=== PATIENT | female | born 2000 | race Caucasian/White ===

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

== ENCOUNTER → 2020-01-08 | Outpatient (CLI) | payer OTHER ==
--- OUTSIDE RECORDS SUMMARY | 2020-01-08 16:59 | XMS REPORT ---
:2000 [facility] [address] [place] [address] Care Team Providers Name Role Phone Ramya Attending Clinician Unavailable Allergies, Adverse Reactions, Alerts This patient has no known allergies or adverse reactions. Medications This patient has no known medications. Problems This patient has no known problems. Procedures Procedure Date / Time Performed Performing Clinician Minh e OFFICE/OUTPATIENT VISIT EST 2018-11-30 08:20:00 Results This patient has no known results. Assessments Condition Name Status Diagnosis Date Treating Clinici an Generalized anxiety disorder Active Major depressive disorder, recurrent, Active moderate Attention-deficit hyperactivity disorder, Active unspecified type Obsessive-compulsive disorder, unspecified Active Encounters Start End Encounter Admission Attending Care Care Encounter Date/Time Date/Time Type Type Clinicians Facility Department ID 2018-11-30 2018-11-[address] [id number]:00 08:20:00 [phone] [id number] [id number] Social History This patient has no known social history. Vital Signs This patient has no known vital signs.
--- NOTE | 2020-01-08 18:30 | RADIOLOGY REPORT (SQ) ---
EXAM DESCRIPTION: U/S NON-OB PELVIS TV W/O DOP IMAGES COMPLETED DATE/TIME: 01/08/2020 4:03 pm REASON FOR STUDY: (T83.32XA)DISPLACEMENT OF INTRAUTERINE CONTRACEPTIVE DEVICE, INIT R10.2 PELVIC AN D PERINEAL PAIN T83.32XA DISPLACEMENT OF INTRAUTERINE CONTRACEPTIVE DEVICE,. IUD strings are lost. COMPARISON: None. TECHNIQUE: Dynamic and static grayscale images acquired of the pelvis via transvaginal approach and recorded on PACS. Additional selected color Doppler and spectral images recorded. LIMITATIONS: None. FINDINGS: UTERUS: The uterus has normal size and contour. No myometrial mass. ENDOMETRIAL STRIPE: The endometrium measures up to 4 mm thickness. An intrauterine device is located normally within the endometrial canal. CERVIX: Normal length and contour. No free fluid or debris within the endocervical canal. No nabot hian cysts. RIGHT OVARY AND DOPPLER: Normal size. No worrisome masses. Normal arterial vascular flow without evid ence for torsion. LEFT OVARY AND DOPPLER: Normal size. No worrisome masses. Normal arterial vascular flow without evide nce for torsion. FREE FLUID: None noted. OTHER: No other significant finding. MEASUREMENTS: UTERUS: 6.4 x 4.6 x 3.1 cm ENDOMETRIAL STRIPE: 4 mm RIGHT OVARY: 3.5 x 2.9 x 2 cm LEFT OVARY: 2.8 x 1.5 x 2.1 cm IMPRESSION: Intrauterine device is located normally within the endometrial canal. Normal sonographi c appearance of the uterus and ovaries. TECHNICAL DOCUMENTATION: JOB ID: [id number] 2010 [employer]- All Rights Reserved Rev-07/15 Reading location - IP/workstation name: [email or web address]
== END ==
LOC: RAD 16:30
PROVIDERS: ATTEND Nurse Practitioner Family
DX: T83.32XA Displacement of intrauterine contraceptive device, initial encounter (principal); R10.2 Pelvic and perineal pain
CPT/HCPCS: 76830